=== PATIENT | female | born 1990 | race Hispanic/Latino ===

== ENCOUNTER 2019-11-21 18:39 | Emergency (ER) | payer SELFPAY ==
[2019-11-21] MEDS ORDERED: Ibuprofen 200 MG TAB ONE (19:05)
== END 2019-11-21 19:52 | disposition home or self-care (01) ==
LOC: ERS 18:39
DX: J02.9 Acute pharyngitis, unspecified (principal); I10 Essential (primary) hypertension; Z87.891 Personal history of nicotine dependence
CPT/HCPCS: 87081; 87430; 99283

== ENCOUNTER 2019-11-22 10:21 | Emergency (ER) | payer OTHER, SELFPAY | END 2019-11-22 11:15 | disposition home or self-care (01) | LOC: ERS 10:21 | DX: R50.9 Fever, unspecified (principal); I10 Essential (primary) hypertension; Z87.891 Personal history of nicotine dependence | CPT/HCPCS: 99283 ==